=== PATIENT | male | born 1960 | race Hispanic/Latino ===

== ENCOUNTER 2022-11-26 09:40 | Inpatient (IN) | payer OTHER ==
[2022-11-26] VITALS (46 sets, daily range): BP systolic 100–138; BP diastolic 60–99; PULSE 56–72; RESP 11–25; O2SAT 95–98
[~2022-11-26] VITALS: Ht 164 cm; Wt 72.6 kg
[2022-11-26] MEDS ORDERED: LIDOCAINE PF 100MG/5ML (2%) SYRINGE 5ML ONE (09:46)
[2022-11-26] MEDS ORDERED: LIDOCAINE HCL 400MG/20ML VIAL ONE (09:46)
[2022-11-26] MEDS ORDERED: FENTANYL CITRATE PF 50 MCG/1 ML 2ML VIAL ONE (09:46)
[2022-11-26] MEDS ORDERED: ATROPINE 1MG SYG IVP ONE (09:46)
[2022-11-26] MEDS ORDERED: HEPARIN 10,000 UNIT/10ML (1,000 UNIT/ML) VIAL ONE (09:47)
[2022-11-26] MEDS ORDERED: MIDAZOLAM HCL 1 MG/ML 2ML VIAL ONE (09:47)
[2022-11-26] MEDS ORDERED: PHENYLEPHRINE HCL 10 MG/ML 5ML VIAL IV ONE (09:47)
[2022-11-26] MEDS ORDERED: IOHEXOL 350 MG/ML 100ML INFUS..BTL IV ONE (09:47)
[2022-11-26] MEDS ORDERED: NOREPINEPHRINE BITARTRATE 1 MG/1 ML ML IV ONE (09:47)
[2022-11-26] MEDS ORDERED: NITROGLYCERIN 50MG VIAL ONE (09:48)
[2022-11-26] MEDS ORDERED: MORPHINE 4 MG SYG ONE (10:02)
[2022-11-26] MEDS ORDERED: TICAGRELOR 90 MG TABLET ONE (10:06)
[2022-11-26] MEDS ORDERED: EPTIFIBATIDE 2 MG/ML 10 ML VIAL IVP ONE (10:39)
[2022-11-26] MEDS ORDERED: EPTIFIBATIDE 75MG/100ML BOTTLE 100 ML IV ONE (10:39)
[2022-11-26] MEDS ORDERED: ADENOSINE 6MG VIAL IV ONE (10:43)
[2022-11-26] MEDS ORDERED: NICARDIPINE 25MG INJ IV ONE (10:43)
[2022-11-26] MEDS ORDERED: GLUCAGON 1MG KIT 1 MG ML IM PRN (12:00)
[2022-11-26] MEDS ORDERED: NITROGLYCERIN 0.4 MG SL TAB SL PRN (12:00)
[2022-11-26] MEDS ORDERED: DEXTROSE 50%-WATER 50 ML DISP.SYRIN IV PRN (12:00)
[2022-11-26] MEDS ORDERED: 0.9%NACL 1000ML 1,000 ML IV SCH (12:00)
[2022-11-26] MEDS: 0.9%NACL 1000ML 1,000 ML IV SCH (16:00)
[2022-11-26] MEDS: EPTIFIBATIDE 75MG/100ML BOTTLE 100 ML IV SCH (16:53)
[2022-11-26] MEDS: TICAGRELOR 90 MG TABLET PO SCH (20:05)
[2022-11-26] MEDS: METOPROLOL TARTRATE 25 MG TAB PO SCH (20:17)
[2022-11-26] MEDS ORDERED: SIMVASTATIN 10 MG TABLET PO SCH (21:00)
[2022-11-27] VITALS (13 sets, daily range): BP systolic 99–135; BP diastolic 62–81; PULSE 51–90; RESP 14–22; O2SAT 96–98
[2022-11-27] MEDS: EPTIFIBATIDE 75MG/100ML BOTTLE 100 ML IV SCH (02:26)
[2022-11-27] MEDS: 0.9%NACL 1000ML 1,000 ML IV SCH (04:02)
[2022-11-27 04:14] LABS: HEMATOCRIT 39.4 % (42-54); MEAN CORPUSCULAR HGB CONC 34.8 g/dL (32.0-36.0); MEAN CORPUSCULAR VOLUME 92.1 fL (79-99); RED BLOOD CELL COUNT(AUTO) 4.28 MIL/uL (4.50-6.20); RED CELL DISTRIBUTION WIDTH 12.7 % (11.0-15.5); WHITE BLOOD COUNT (AUTO) 12.8 K/uL (4.8-10.8)
[2022-11-27 04:25] LABS: CREATININE 0.9 mg/dL (0.5-1.5); POTASSIUM 3.4 mmol/L (3.5-5.1)
[2022-11-27 04:48] LABS: HEMOGLOBIN A1C 5.5 % (4.0-6.0)
[2022-11-27] MEDS ORDERED: POTASSIUM CHLORIDE 20MEQ/100ML 100 ML IV PRN ×2 (07:30)
[2022-11-27] MEDS ORDERED: POTASSIUM CHLORIDE 10% ELIXIR 20 MEQ/15 ML UDCUP PO PRN ×2 (07:30)
[2022-11-27] MEDS ORDERED: KCL 20 MEQ ERTAB PO PRN (07:30)
[2022-11-27] MEDS ORDERED: MAGNESIUM 2GM PREMIX 50ML 50 ML IV PRN (07:30)
[2022-11-27] MEDS: ASPIRIN 81MG CHEW TAB PO SCH (08:12)
[2022-11-27] MEDS: METOPROLOL TARTRATE 25 MG TAB PO SCH ×2 (08:12→20:21)
[2022-11-27] MEDS: TICAGRELOR 90 MG TABLET PO SCH ×2 (08:12→20:23)
[2022-11-27] MEDS: KCL 20 MEQ ERTAB PO PRN ×2 (08:13→10:15)
[2022-11-27] MEDS: MAGNESIUM 2GM PREMIX 50ML 50 ML IV PRN (10:15)
[2022-11-27] MEDS: ATORVASTATIN 40 MG TABLET PO SCH (20:21)
[2022-11-28] VITALS (7 sets, daily range): BP systolic 105–159; BP diastolic 61–88; PULSE 68–81; RESP 16–18; O2SAT 97
[2022-11-28 05:25] LABS: HEMATOCRIT 39.1 % (42-54); MEAN CORPUSCULAR HEMOGLOBIN 31.8 pg (27.0-33.0); MEAN CORPUSCULAR HGB CONC 34.8 g/dL (32.0-36.0); MEAN CORPUSCULAR VOLUME 91.4 fL (79-99); RED BLOOD CELL COUNT(AUTO) 4.28 MIL/uL (4.50-6.20); RED CELL DISTRIBUTION WIDTH 12.8 % (11.0-15.5)
[2022-11-28 05:53] LABS: ALBUMIN 2.9 g/dL (3.5-5.0); CREATININE 0.9 mg/dL (0.5-1.5); MAGNESIUM 1.9 mg/dL (1.80-2.40); POTASSIUM 3.9 mmol/L (3.5-5.1); TOTAL PROTEIN, SERUM 6.5 g/dL (6.0-8.3)
[2022-11-28] MEDS: MAGNESIUM 2GM PREMIX 50ML 50 ML IV PRN (06:35)
[2022-11-28] MEDS ORDERED: PRAS10TA6 PO (08:23)
[2022-11-28] MEDS ORDERED: ASPI-1005 PO (08:23)
[2022-11-28] MEDS ORDERED: METO25 PO (08:23)
[2022-11-28] MEDS ORDERED: ATOR40TA69 PO (08:23)
[2022-11-28] MEDS ORDERED: Nitroglycerin 0.4MG Sl Tab SL (08:23)
[2022-11-28] MEDS: METOPROLOL TARTRATE 25 MG TAB PO SCH ×2 (09:44→20:07)
[2022-11-28] MEDS: ASPIRIN 81MG CHEW TAB PO SCH (09:44)
[2022-11-28] MEDS: PRASUGREL HCL 10 MG TABLET PO SCH (09:44)
[2022-11-28] MEDS ORDERED: FUROSEMIDE 20MG VIAL IV ONE (16:30)
[2022-11-28] MEDS ORDERED: KCL 20 MEQ ERTAB PO ONE (16:30)
[2022-11-28] MEDS: ATORVASTATIN 40 MG TABLET PO SCH (20:07)
[2022-11-28] MEDS ORDERED: LISINOPRIL 5 MG TABLET PO ONE (21:00)
[2022-11-29] VITALS: BP 124/68; PULSE 81; RESP 18
[2022-11-29 04:00] VITALS: BP 119/75; PULSE 68; RESP 18
[2022-11-29 04:47] LABS: HEMATOCRIT 40.8 % (42-54); MEAN CORPUSCULAR HEMOGLOBIN 31.9 pg (27.0-33.0); MEAN CORPUSCULAR HGB CONC 34.6 g/dL (32.0-36.0); MEAN CORPUSCULAR VOLUME 92.3 fL (79-99); RED BLOOD CELL COUNT(AUTO) 4.42 MIL/uL (4.50-6.20); RED CELL DISTRIBUTION WIDTH 12.6 % (11.0-15.5); WHITE BLOOD COUNT (AUTO) 11.2 K/uL (4.8-10.8)
[2022-11-29 05:19] LABS: ALBUMIN 2.9 g/dL (3.5-5.0); BILIRUBIN,DIRECT 0.2 mg/dL (0.0-0.3); MAGNESIUM 2.2 mg/dL (1.80-2.40); POTASSIUM 3.7 mmol/L (3.5-5.1)
[2022-11-29] MEDS: ASPIRIN 81MG CHEW TAB PO SCH (08:29)
[2022-11-29] MEDS: METOPROLOL TARTRATE 25 MG TAB PO SCH (08:29)
[2022-11-29] MEDS: PRASUGREL HCL 10 MG TABLET PO SCH (08:29)
[2022-11-29 08:46] VITALS: BP 117/75; PULSE 72; RESP 16
[2022-11-29 11:51] VITALS: BP 114/59; PULSE 114; RESP 16
[2022-11-29] MEDS ORDERED: FURO20TA4 PO (12:08)
[2022-11-29] MEDS ORDERED: POTA-202 PO (12:08)
[2022-11-29] MEDS ORDERED: LISI5TAB21 PO (12:10)
[2022-11-29 16:00] VITALS: BP 117/60; PULSE 68; RESP 16
== END 2022-11-29 17:30 | disposition home or self-care (01) | DRG 246 ==
LOC: DIRECT 09:57 → 2CV 11:07 → 2BH 15:18 → 4CH 11-27 23:04
PROVIDERS: ADMIT Internal Medicine; ATTEND Internal Medicine
PROC: 027035Z Dilation of Coronary Artery, One Artery with Two Drug-eluting Intraluminal Devices, Percutaneous Approach (ICD-10-PCS; principal; 2022-11-26)
PROC: 4A023N7 Measurement of Cardiac Sampling and Pressure, Left Heart, Percutaneous Approach (ICD-10-PCS; 2022-11-26)
PROC: B2111ZZ Fluoroscopy of Multiple Coronary Arteries using Low Osmolar Contrast (ICD-10-PCS; 2022-11-26)
DX: I21.09 ST elevation (STEMI) myocardial infarction involving other coronary artery of anterior wall (principal); I50.31 Acute diastolic (congestive) heart failure; I25.10 Atherosclerotic heart disease of native coronary artery without angina pectoris; Z95.5 Presence of coronary angioplasty implant and graft; E78.5 Hyperlipidemia, unspecified; I11.0 Hypertensive heart disease with heart failure; R79.89 Other specified abnormal findings of blood chemistry; I25.2 Old myocardial infarction; K76.0 Fatty (change of) liver, not elsewhere classified; Z79.02 Long term (current) use of antithrombotics/antiplatelets; Z79.82 Long term (current) use of aspirin; Z79.899 Other long term (current) drug therapy
CPT/HCPCS: 36415; 71045; 76705; 80048; 80053; 80061; 80076; 82948; 83036; 83735; 84484; 85027; 93306; 93458; 99156; 99157; C1894; C9606; G0378; J0153; J0461; J1327; J1644; J1940; J2001; J2250; J2270; J2370; J3010; J3475; J3490; Q9967; C1725; C1760; C1769; C1874; C1887; Q9965